=== PATIENT | female | born 1990 | race Caucasian/White ===

== ENCOUNTER 2018-09-06 08:07 | Emergency (ER) | payer MEDICAID ==
[2018-09-06 08:21] LABS: URINE BLOOD (Dip) POC Trace-intact (NEGATIVE); URINE GLUCOSE (Dip) POC Negative (NEGATIVE); URINE KETONES (Dip) POC Negative (NEGATIVE); URINE LEUKOCYTE EST (Dip) POC 1+ (NEGATIVE); URINE NITRITE (Dip) POC Negative (NEGATIVE); URINE TOTAL PROTEIN POC Negative (NEGATIVE)
[2018-09-06 08:21] LABS: URINE PH (Dip) POC 7.5 (5.0-8.5)
[2018-09-06] MEDS: AZITHROMYCIN 250 MG TAB PO (08:55)
[2018-09-06] MEDS: LIDOCAINE 1% (MPF) 5 ML VIAL INJ (08:56)
[2018-09-06] MEDS: CEFTRIAXONE 1 GM INJ IM (08:56)
== END 2018-09-06 09:28 | disposition home or self-care (01) ==
LOC: FTE 08:07
DX: N39.0 Urinary tract infection, site not specified (principal); R10.2 Pelvic and perineal pain
CPT/HCPCS: 81003; 81025; 87086; 87591; 96372; 99284-25